=== PATIENT | female | born 2000 | race African-American/Black ===

== ENCOUNTER 2023-07-30 10:46 | Emergency (ER) | payer MEDICAID ==
[~2023-07-30] VITALS: Ht 160 cm; Wt 50.0 kg
[2023-07-30 11:41] VITALS: O2SAT 99
[2023-07-30 12:31] LABS: HEMATOCRIT. 38.7 % (36.0-48.0); HEMOGLOBIN. 12.8 g/dL (12.0-16.0); MEAN CORPUSCULAR HEMOGLOBIN 29.7 pg (28.0-32.0); MEAN CORPUSCULAR HGB CONC 33.2 g/dL (31.0-37.0); MEAN CORPUSCULAR VOLUME 89.7 fL (81.0-99.0); MEAN PLATELET VOLUME 8.8 fl (7.4-10.4); PLATELET 221 x1000/uL (130-400); RED BLOOD CELL COUNT 4.32 mill/uL (4.2-5.4); RED CELL DISTRIBUTION WIDTH 15.2 % (11.6-14.6); WHITE BLOOD COUNT 3.5 x1000/uL (4.5-11.0)
[2023-07-30 12:38] LABS: DIFFERENTIAL COMMENT 1
[2023-07-30 13:12] LABS: ALANINE AMINOTRANSFERASE 146 IU/L (10-49); ALBUMIN 5.8 g/dL (3.2-4.8); ASPARTATE AMINOTRANSFERASE 303 IU/L (<34); BILIRUBIN TOTAL 1.5 mg/dL (0.1-1.0); CALCIUM 10.4 mg/dL (8.7-10.4); CARBON DIOXIDE 25 mEq/L (21-32); CHLORIDE 96 mEq/L (98-107); CREATININE 0.6 mg/dL (0.6-1.0); GLUCOSE 76 mg/dL (70-105); POTASSIUM 4.7 mEq/L (3.5-5.1); PROTEIN TOTAL 9.3 g/dL (6.0-8.3); SODIUM 136 mEq/L (136-145); UREA NITROGEN BLOOD 13 mg/dL (9-23)
[2023-07-30 13:12] LABS: CLARITY URINE CLOUDY (CLEAR); COLOR URINE ORANGE (YELLOW); GLUCOSE URINE NEGATIVE (NEGATIVE); KETONES URINE 3+ (NEGATIVE); LEUKOCYTE ESTERASE URINE TRACE (NEGATIVE); NITRITE URINE NEGATIVE (NEGATIVE); OCCULT BLOOD URINE NEGATIVE (NEGATIVE); PROTEIN URINE 3+ (NEGATIVE); SPECIFIC GRAVITY URINE 1.028 (1.005-1.030)
[2023-07-30 13:24] LABS: ANISOCYTOSIS 1+; PLATELET ESTIMATE NORMAL
[2023-07-30 13:33] LABS: BACTERIA URINE 1+; MUCUS URINE 1+ /lpf (< = 2+); RBC URINE 0-2 /hpf (0-2); SQUAMOUS EPITHELIAL CELL URINE 2+ /lpf (RARE/1+); YEAST URINE NONE SEEN
[2023-07-30 15:02] LABS: TROPONIN I HIGH SENSITIVITY 9 ng/L (3.0-34)
[2023-07-30] MEDS: CHLORDIAZEPOXIDE 25MG CAPSULE PO ONE (15:45)
[2023-07-30] MEDS ORDERED: ONDA4TAB11 PO (15:55)
[2023-07-30] MEDS: ONDANSETRON 4MG ODT PO ONE (16:15)
[2023-07-30 17:24] VITALS: BP 136/76; PULSE 96; RESP 18; TEMP 98
[2023-07-30 17:24] LABS: HCG SCREEN NEGATIVE
== END 2023-07-30 17:25 | disposition home or self-care (01) ==
LOC: ER 11:54
DX: F10.20 Alcohol dependence, uncomplicated (principal); R74.01 Elevation of levels of liver transaminase levels; Y90.9 Presence of alcohol in blood, level not specified
CPT/HCPCS: 99284; 71045; 80053; 81003; 81025; 84703; 83690; 85025; 84484; 36415; Q0162